=== PATIENT | male | born 1970 | race Hispanic/Latino ===

== ENCOUNTER 2018-09-18 09:23 | Observation (INO) | payer BC ==
--- NOTE | 2018-09-18 10:09 | ED PDOC ---
HPI: Back Time Seen by Provider: 09/18/18 09:57 Chief Complaint (Nursing): Back Pain Chief Complaint (Provider): BACK PAIN History Per: Patient History/Exam Limitations: no limitations Onset/Duration Of Symptoms: Days Current Symptoms Are (Timing): Still Present Quality Of Discomfort: Other ("SPASMING") Severity: Severe Pain Scale Rating Of: 9 Previous Symptoms: Back Pain Associated Symptoms: None Exacerbating Factor(s): Turning, Movement, Sitting, Standing Additional History Per: Patient Additional Complaint(s): 48 Y/O MALE BROUGHT IN BY EMS ON STRETCHER, PRESENTS WITH 6 DAY HX OF LOWER BACK PAIN SINCE THURSDAY, HE STATES HE WAS AT THE GYM THURSDAY DOING BACK ROWS WITH WEIGHTS AND FELT A "POP" TO THE LOWER BACK AFTER WHICH HE STOPPED EXERCISING, AMBULATED WITHOUT DIFFICULTY AND WENT HOME. HE WAS SEEN BY CHIROPRACTOR THURSDAY AND THURSDAY AND BY THEN WAS FEELING BETTER. LASTNIGHT PATIENT STATES HE MOVED AND TV AND THIS AM WOKE UP WITH SEVERE LOWER BACK PAIN WITH MOVEMENT FOR WHICH HE TOOK 1000MG OF ADVIL PRIOR TO ARRIVAL TO ED. PATIENT STATES HE IS ABLE TO CONTROL BOWELS AND BLADDER WITHOUT DIFFICULTY BUT IS UNABLE TO WALK DUE TO PAIN. PT DENIES NAUSEA, VOMITING, LOWER EXT NUMBNESS/PAIN. PATIENT STATES HE HAS HX OF LOWER BACK PAIN IN THE PAST BUT HAS NEVER HAD IMAGING. Past Medical History Vital Signs: Last Vital Signs Temp 97.8 F 09/18/18 09:39 Pulse 71 09/18/18 09:39 Resp 19 09/18/18 09:39 BP 129/96 H 09/18/18 09:39 Pulse Ox 100 09/18/18 09:39 FREDI Report Viewed: No - Medical History PMH: Depression, HTN, Hypercholesterolemia Denies: Diabetes, Hepatitis, HIV, Seizures, Sexually Transmitted Disease - Surgical History Surgical History: No Surg Hx - Family History Family History: States: Unknown Family Hx - Social History Alcohol: None Drugs: Denies - Home Medications Home Medications: Ambulatory Orders Medication Instructions Recorded Rosuvastatin Calcium [Crestor] 40 mg PO DAILY 09/18/18 - Allergies Allergies/Adverse Reactions: Allergies Allergy/AdvReac Type Severity Reaction Status Date / Time No Known Allergies Allergy Verified 09/18/18 09:38 Review of Systems ROS Statement: Except As Marked, All Systems Reviewed And Found Negative Cardiovascular: Negative for: Chest Pain, Palpitations Respiratory: Negative for: Cough, Shortness of Breath, SOB with Exertion Gastrointestinal: Negative for: Nausea, Vomiting, Abdominal Pain Musculoskeletal: Positive for: Back Pain (LUMBAR/SACRAL PAIN ) Neurological: Negative for: Weakness Physical Exam - Reviewed Nursing Documentation Reviewed: Yes Vital Signs Reviewed: Yes - Physical Exam Appears: Positive for: Well, Non-toxic, No Acute Distress Head Exam: Positive for: ATRAUMATIC, NORMAL INSPECTION, NORMOCEPHALIC Skin: Positive for: Normal Color, Warm, DRY Eye Exam: Positive for: Normal appearance, PERRL ENT: Positive for: Normal ENT Inspection Neck: Positive for: Normal, Painless ROM, Supple Cardiovascular/Chest: Positive for: Regular Rate, Rhythm Respiratory: Positive for: CNT, Normal Breath Sounds Pulses-Dorsalis Pedis (L): 2+ Pulses-Dorsalis Pedis (R): 2+ Pulses-Radial (L): 2+ Pulses-Radial (R): 2+ Gastrointestinal/Abdominal: Positive for: Normal Exam, Soft. Negative for: Tenderness Back: Positive for: Normal Inspection. Negative for: L CVA Tenderness, R CVA Tenderness Extremity: Positive for: Normal ROM, Capillary Refill (< 2 SECS LOWER EXT CAP REFILL BILAT ), Other (PAIN REPRODUCED TO LOWER BACK UPON BILAT LEG RAISES, WORSE WITH RAISE OF THE RIGHT LEG. ). Negative for: Tenderness, Pedal Edema, Calf Tenderness, Swelling Neurological/Psych: Positive for: Awake, Alert, Normal Tone, Symmetric/Intact Strength, Oriented, Motor/Sensory Deficits (INTACT BILAT LOWER EXT ) - Laboratory Results Result Diagrams: 09/18/18 16:06 09/18/18 16:06 - ECG O2 Sat by Pulse Oximetry: 100 - Progress ED Course And Treament: TYLENOL 975MG PO FLEXERIL 10MG PO CT LUMBAR SPINE 12PM: PATIENT REVALUATED AT THIS TIME, PATIENT CONTINUES IN SEVERE BACK PAIN, PENDING CT RESULTS. 1PM: NO IMPROVEMENT, VALIUM AND DOSE OF MORPHINE 2MG IM TO BE GIVEN. WILL RE - EVALUATE. PATIENT FOR MRI 2PM: PT SITTING UP RIGHT EATING SANDWICH, UPON ATTEMPTING TO GET UP FROM BED PT STATES HE IS UNABLE TO DUE TO PAIN. NO NEURO CHANGES AT THIS TIME. PENDING STAFFING ASSOCIATE FOR MRI 15:30: NO MRI AVAILABLE TODAY. PATIENT CONTINUES IN BED WITHOUT BEING ABLE TO TO WALK DUE TO PAIN. SECOND DOSE OF MORPHINE 2MG IV WITH BASIC LABS ORDERED. DENIES NUMBNESS, NO CHANGE IN NEURO EXAM. PT FOR ADMISSION FOR INTRACTABLE BACK PAIN UNDER DR. ROBERTSON. Medical Decision Making Medical Decision Makin:39 CT LUMBAR SPINE READ AND REVIEWED BY RADIOLOGIST FINDINGS: VERTEBRAE: No destructive bony lesion appreciated. No fracture or spondylolisthesis. No spondylolysis. Straightened curvature evident. DISCS/SPINAL CANAL/NEURAL FORAMINA: L1-2: Unremarkable. L2-3: Posterior disc osteophyte complex flattens the ventral thecal sac and causes a mild central canal stenosis concentrated at the bilateral lateral rece sses with mild bilateral neural foraminal stenosis appreciated. L3-4: Posterior disc bulge identified causing mild central canal stenosis and mild bilateral neural foraminal stenosis. L4-5: Posterior disc bulge identified causing mild central canal stenosis and mild bilateral neural foraminal stenosis. L5-S1: Unremarkable. No gross disc herniation appreciated throughout the exam. Intervertebral discs are better evaluated by MRI nevertheless. PARASPINAL SOFT TISSUES: Unremarkable. OTHER FINDINGS: None. IMPRESSION: Mild central canal and bilateral neural foraminal stenoses are seen due to multilevel posterior disc bulging without gross disc herniation evident. MRI can be utilized for added characterization if clinically warranted. Straightened lumbar curvature. Disposition - Clinical Impression Clinical Impression: Intractable back pain - Patient ED Disposition Is Patient to be Admitted: Yes Doctor Will See Patient In The: Hospital Counseled Patient/Family Regarding: Diagnosis - Disposition Disposition Time: 15:30 Condition: STABLE - Pt Status Changed To: Hospital Disposition Of: Observation - POA Present On Arrival: None
--- NOTE | 2018-09-18 11:43 | CT ---
Date of service: 09/18/2018 PROCEDURE: CT Lumbar Spine without contrast HISTORY: LOWER BACK PAIN COMPARISON: None available. TECHNIQUE: Axial computed tomography images were obtained of the lumbar spine without the use of intravenous contrast. Coronal and sagittal reformatted images were created and reviewed. Radiation dose: Total exam DLP = 823.44 mGy-cm. This CT exam was performed using one or more of the following dose reduction techniques: Automated exposure control, adjustment of the mA and/or kV according to patient size, and/or use of iterative reconstruction technique. FINDINGS: VERTEBRAE: No destructive bony lesion appreciated. No fracture or spondylolisthesis. No spondylolysis. Straightened curvature evident. DISCS/SPINAL CANAL/NEURAL FORAMINA: L1-2: Unremarkable. L2-3: Posterior disc osteophyte complex flattens the ventral thecal sac and causes a mild central canal stenosis concentrated at the bilateral lateral recesses with mild bilateral neural foraminal stenosis appreciated. L3-4: Posterior disc bulge identified causing mild central canal stenosis and mild bilateral neural foraminal stenosis. L4-5: Posterior disc bulge identified causing mild central canal stenosis and mild bilateral neural foraminal stenosis. L5-S1: Unremarkable. No gross disc herniation appreciated throughout the exam. Intervertebral discs are better evaluated by MRI nevertheless. PARASPINAL SOFT TISSUES: Unremarkable. OTHER FINDINGS: None. IMPRESSION: Mild central canal and bilateral neural foraminal stenoses are seen due to multilevel posterior disc bulging without gross disc herniation evident. MRI can be utilized for added characterization if clinically warranted. Straightened lumbar curvature.
[2018-09-18] MEDS ORDERED: diaZEpam 10 mg/2 ml Inj IM STA (13:16)
[2018-09-18 16:12] LABS: BASO % 0.6 % (0.0-2.0); EOS # 0.3 K/uL (0.0-0.7); EOS % 4.6 % (0.0-4.0); HEMOGLOBIN 16.3 g/dL (12.0-18.0); LYMPH # 1.7 K/uL (1.0-4.3); LYMPH % 27.3 % (20.0-40.0); MEAN CELL VOLUME 85.4 fl (80.0-94.0); MEAN CORPUSCULAR HEMOGLOBIN 29.3 pg (27.0-31.0); MEAN CORPUSCULAR HGB CONC 34.4 g/dL (33.0-37.0); MEAN PLATELET VOLUME 9.1 fl (7.2-11.7); MONO # 0.4 K/uL (0.0-0.8); MONO % 6.2 % (0.0-10.0); NEUT # 3.7 K/uL (1.8-7.0); NEUT % 61.3 % (50.0-75.0); NRBC % 0.1 % (0.0-0.0); RBC 5.57 Mil/uL (4.40-5.90); WHITE BLOOD COUNT 6.1 K/uL (4.8-10.8)
[2018-09-18 16:25] LABS: ALB/GLOB RATIO 1.5 (1.0-2.1); ALBUMIN 4.6 g/dL (3.5-5.0); ALT/SGPT 49 U/L (21-72); AST/SGOT 36 U/L (17-59); BLOOD UREA NITROGEN 14 mg/dl (9-20); CALCIUM 9.5 mg/dL (8.4-10.2); GFR NON-AFRICAN AMERICAN > 60
[2018-09-19] MEDS ORDERED: Oxycodone/Acetaminophen 5/325 mg Tab PO PRN (12:24)
[2018-09-19] MEDS ORDERED: methylPREDNISolone 40 MG in Sodium Chloride 0.9% 50 ML IVPB SCH (12:30)
[2018-09-19] MEDS: MethylPREDNISolone 40 mg Vial IVP SCH ×2 (12:55→16:46)
[2018-09-19 16:08] VITALS: RESP 20
[2018-09-19] MEDS: Oxycodone/Acetaminophen 5/325 mg Tab PO PRN (23:02)
[2018-09-20] MEDS: MethylPREDNISolone 40 mg Vial IVP SCH ×2 (01:28→11:15)
[2018-09-20] MEDS: Oxycodone/Acetaminophen 5/325 mg Tab PO PRN (07:40)
[2018-09-20 08:14] VITALS: BP 168/79; TEMP 97.7
--- NOTE | 2018-09-20 09:54 | MRI ---
Date of service: 09/20/2018 PROCEDURE: MR LUMBAR SPINE WITHOUT CONTRAST HISTORY: PERSISTENT BACK PAIN COMPARISON: CT lumbar spine from 09/18/2018. TECHNIQUE: Multiecho multiplanar sequences were performed through the lumbar spine without the use of intravenous contrast. FINDINGS: There is normal alignment of the lumbar vertebral bodies. There is normal lumbar lordosis. There is no acute fracture, spondylolysis or spondylolisthesis. Bone marrow signal is within normal limits. The conus medullaris terminates at a normal level and the nerve roots of cauda equina are normal. The paraspinous soft tissues are normal. Imaged portion of the retroperitoneum is within normal limits. T12-L1: Right paracentral, posterolateral and far lateral annular tear and disc protrusion without central spinal canal stenosis. Mild bilateral facet arthropathy. No neural foraminal narrowing. L1-2: No disc herniation, spinal canal stenosis or neural foraminal narrowing. L2-3: Right far lateral annular tear and disc protrusion abuts the exiting right L2 nerve root. No central disc herniation, spinal canal stenosis or neural foraminal narrowing. L3-4: Right foraminal and far lateral annular tear and disc protrusion abuts the exiting right L3 nerve root. Also noted is left foraminal and far lateral annular tear and disc which likely abuts the exiting left L3 nerve root. Moderate bilateral facet arthropathy contribute to mild neural foraminal narrowing. No central spinal canal stenosis. L4-5: Small central disc protrusion indents the ventral thecal sac without central spinal canal stenosis. There are bilateral foraminal and far lateral annular tear and disc protrusions which abut the exiting L4 nerve roots. Moderate bilateral facet arthropathy contribute to moderate right and severe left neural foraminal narrowing. L5-S1: Large right posterolateral disc protrusion impinges on the traversing right S1 nerve root with mild central spinal canal stenosis. Mild bilateral facet arthropathy contribute to mild right neural foraminal narrowing. OTHER FINDINGS: None. IMPRESSION: 1. Large right posterolateral disc protrusion impinges on the exiting right S1 nerve root with mild central spinal canal stenosis. Mild bilateral facet arthropathy contribute to mild right neural foraminal narrowing. 2. Multilevel foraminal and far lateral annular tears and disc protrusions which abut the exiting nerve roots from L2-3 to L4-5 as described above.
[2018-09-20 17:13] VITALS: PULSE 104; O2SAT 95
--- NOTE | 2018-09-20 20:59 | CP.PCM.HP ---
History of Present Illness - History of Present Illness History of Present Illness: 48 yo male presented to ED with lower back pain which caused him unable to walk. Patient was evaluated and treated in ED, though symptoms persisted. Patient was admitted for intractable back pain. Patient was seen and examined at bedside. States pain continues and still unable to walk without assistance. States nerve like pain that radiates to right side. No other complaitns offered at this time. no chest pain, sob, palpitations, headaches. Meds: as per chart Allergies: as per chart Fam hx: non contributory Present on Admission - Present on Admission Any Indicators Present on Admission: No Review of Systems - Review of Systems All systems: reviewed and no additional remarkable complaints except (mentioned above) Past Patient History - Infectious Disease Hx of Infectious Diseases: None - Past Medical History & Family History Past Medical History?: Yes Past Family History: Reviewed and not pertinent - Past Social History Smoking Status: Never Smoked - CARDIAC Hx Hypercholesterolemia: Yes Hx Hypertension: Yes - PULMONARY Hx Tuberculosis: No - NEUROLOGICAL Hx Seizures: No - HEMATOLOGICAL/ONCOLOGICAL Hx Human Immunodeficiency Virus (HIV): No - INTEGUMENTARY Hx Dermatological Problems: No - MUSCULOSKELETAL/RHEUMATOLOGICAL Hx Musculoskeletal Disorders: No Hx Falls: No - GASTROINTESTINAL Hx Gastrointestinal Disorders: No - GENITOURINARY/GYNECOLOGICAL Hx Sexually Transmitted Disorders: No - PSYCHIATRIC Hx Depression: Yes Hx Substance Use: No Meds Home Medications: Home Medication List Medication Instructions Recorded Confirmed Type Methylprednisolone [Medrol Dose 4 mg PO DAILY #21 mg 09/20/18 Rx Pack (21 tabs)] oxyCODONE/Acetaminophen [Percocet 1 tab PO Q4 PRN #20 tab 09/20/18 Rx 5/325 mg Tab] Allergies/Adverse Reactions: Allergies Allergy/AdvReac Type Severity Reaction Status Date / Time No Known Allergies Allergy Verified 09/18/18 09:38 Physical Exam - Constitutional Appears: Non-toxic, In Acute Distress - Head Exam Head Exam: NORMAL INSPECTION - Eye Exam Eye Exam: Normal appearance - Neck Exam Neck exam: Positive for: Normal Inspection - Respiratory Exam Respiratory Exam: NORMAL BREATHING PATTERN - Cardiovascular Exam Cardiovascular Exam: +S1, +S2 - GI/Abdominal Exam GI & Abdominal Exam: Soft - Extremities Exam Extremities exam: Positive for: normal inspection - Back Exam Back exam: paraspinal tenderness (bilatearlly) - Neurological Exam Neurological exam: Alert, Oriented x3 Additional comments: unable to assess gait - Psychiatric Exam Psychiatric exam: Normal Affect, Normal Mood - Skin Skin Exam: Normal Color, Warm Results - Vital Signs Recent Vital Signs: Last Vital Signs Temp 97.7 F 09/20/18 08:14 Pulse 104 H 09/20/18 13:23 Resp 20 09/20/18 08:14 BP 168/79 H 09/20/18 08:14 Pulse Ox 95 09/20/18 13:23 - Labs Result Diagrams: 09/18/18 16:06 09/18/18 16:06 Assessment & Plan (1) Intractable back pain Status: Acute - Assessment and Plan (Free Text) Plan: monitor labs monitor vitals steroids for antiinflammatoy percocet prn obtain MRI PT eval rest of plan as orderd
--- NOTE | 2018-09-22 12:40 | CP.PCM.DIS ---
Provider - Provider Date of Admission: 09/18/18 15:49 Attending physician: Galen Bowman MD Primary care physician: Non [facility] Provider Time Spent in preparation of Discharge (in minutes): 30 Diagnosis - Discharge Diagnosis (1) Intractable back pain Status: Acute Hospital Course - Lab Results Lab Results: Most Recent Lab Values WBC 6.1 K/uL (4.8-10.8) 09/18/18 16:06 RBC 5.57 Mil/uL (4.40-5.90) 09/18/18 16:06 Hgb 16.3 g/dL (12.0-18.0) 09/18/18 16:06 Hct 47.6 % (35.0-51.0) 09/18/18 16:06 MCV 85.4 fl (80.0-94.0) D 09/18/18 16:06 MCH 29.3 pg (27.0-31.0) 09/18/18 16:06 MCHC 34.4 g/dL (33.0-37.0) 09/18/18 16:06 RDW 13.0 % (11.5-14.5) 09/18/18 16:06 Plt Count 174 K/uL (130-400) 09/18/18 16:06 MPV 9.1 fl (7.2-11.7) 09/18/18 16:06 Neut % (Auto) 61.3 % (50.0-75.0) 09/18/18 16:06 Lymph % (Auto) 27.3 % (20.0-40.0) 09/18/18 16:06 Hardeman % (Auto) 6.2 % (0.0-10.0) 09/18/18 16:06 Eos % (Auto) 4.6 % (0.0-4.0) H 09/18/18 16:06 Baso % (Auto) 0.6 % (0.0-2.0) 09/18/18 16:06 Neut # (Auto) 3.7 K/uL (1.8-7.0) 09/18/18 16:06 Lymph # (Auto) 1.7 K/uL (1.0-4.3) 09/18/18 16:06 Hardeman # (Auto) 0.4 K/uL (0.0-0.8) 09/18/18 16:06 Eos # (Auto) 0.3 K/uL (0.0-0.7) 09/18/18 16:06 Baso # (Auto) 0.0 K/uL (0.0-0.2) 09/18/18 16:06 Sodium 138 mmol/l (132-148) 09/18/18 16:06 Potassium 3.4 MMOL/L (3.6-5.0) L 09/18/18 16:06 Chloride 102 mmol/L (98-107) 09/18/18 16:06 Carbon Dioxide 26 mmol/L (22-30) 09/18/18 16:06 Anion Gap 13 (10-20) 09/18/18 16:06 BUN 14 mg/dl (9-20) 09/18/18 16:06 Creatinine 0.8 mg/dl (0.8-1.5) 09/18/18 16:06 Est GFR ( Amer) > 60 09/18/18 16:06 Est GFR (Non-Af Amer) > 60 09/18/18 16:06 Random Glucose 167 mg/dL (75-110) H 09/18/18 16:06 Calcium 9.5 mg/dL (8.4-10.2) 09/18/18 16:06 Total Bilirubin 0.8 mg/dl (0.2-1.3) 09/18/18 16:06 AST 36 U/L (17-59) 09/18/18 16:06 ALT 49 U/L (21-72) 09/18/18 16:06 Alkaline Phosphatase 48 U/L (38-126) 09/18/18 16:06 Total Protein 7.6 G/DL (6.3-8.2) 09/18/18 16:06 Albumin 4.6 g/dL (3.5-5.0) 09/18/18 16:06 Globulin 3.0 gm/dL (2.2-3.9) 09/18/18 16:06 Albumin/Globulin Ratio 1.5 (1.0-2.1) 09/18/18 16:06 - Hospital Course Hospital Course: 48 yo male presented to ED with lower back pain which caused him unable to walk. Patient was evaluated and treated in ED, though symptoms persisted. Patient was admitted for intractable back pain. Patient improved with steroid treatment and MRI was completed, see MRI report for further details. Patient to follow up with PCP and neurosurgery in 1 wk Discharge Exam - Head Exam Head Exam: NORMAL INSPECTION - Eye Exam Eye Exam: Normal appearance - Neck Exam Neck exam: Normal Inspection - Respiratory Exam Respiratory Exam: NORMAL BREATHING PATTERN - Cardiovascular Exam Cardiovascular Exam: +S1, +S2 - Neurological Exam Neurological exam: Alert, Oriented x3 - Psychiatric Exam Psychiatric exam: Normal Affect, Normal Mood - Skin Skin Exam: Normal Color, Warm Discharge Plan - Discharge Medications Prescriptions: Methylprednisolone [Medrol Dose Pack (21 tabs)] 4 mg PO DAILY #21 mg oxyCODONE/Acetaminophen [Percocet 5/325 mg Tab] 1 tab PO Q4 PRN #20 tab PRN Reason: Pain, Moderate (4-7) - Follow Up Plan Condition: STABLE Disposition: HOME/ ROUTINE Instructions: Upper Back Pain (DC), Methylprednisolone, Oxycodone and Acetaminophen, Back Pain (GEN) Additional Instructions: follow up with your primary MD Dr. Sybil Escamilla 1 week Referrals: Leighton Moore MD [Staff Provider] -
== END 2018-09-20 11:35 | disposition home or self-care (01) ==
LOC: EDBD 09:23 → SUPCPDRO 09:23 → H.ER 09:23 → H.ERHOLD 15:49 → H.MEDSURG1 16:23
PROVIDERS: ADMIT Family Medicine; ATTEND Family Medicine
DX: M54.5 Low back pain (principal); I10 Essential (primary) hypertension; E78.00 Pure hypercholesterolemia, unspecified; F32.9 Major depressive disorder, single episode, unspecified
CPT/HCPCS: 72131; 72148; 80053; 85025; 96372; 96374; 96375; 96376; 97161; 97530; 99285; G0378; J1885; J2270; J2920